=== PATIENT | female | born 1980 ===

== ENCOUNTER 2017-02-08 19:44 | Emergency (ER) | payer OTHER ==
[2017-02-08 19:56] VITALS: RESP 16
--- NOTE | 2017-02-08 21:26 | ED PDOC ---
HPI: Headache Time Seen by Provider: 02/08/17 20:07 Chief Complaint (Nursing): Headache Chief Complaint (Provider): Headache History Per: Patient, Economic Development Specialist ([id number] [address] Arrington) History/Exam Limitations: language barrier (interpretor used) Onset/Duration Of Symptoms: Days (x5 days) Current Symptoms Are (Timing): Still Present Additional Complaint(s): Cortney Oro is a 36 year old female with a past medical history of migraines who presents to the ED complaining of a headache x5 days. States the headache fluctuates from mild to severe and is usually worse at night. Also states the pain worsened today which prompted her to present to the ED. Denies nausea, vomiting, dizziness, fever, neck pain, head trauma, photophobia, and phonophobia, but confirms intermittent light headedness. States the pain is located in her right frontal region and radiates to her right occipital region. Patient has a past history of migraines, but states her symptoms feel slightly different. Confirms last taking Aleve at noon. LNMP 01/23/17. PMD: Cannot recall Past Medical History Reviewed: Historical Data, Nursing Documentation, Vital Signs Vital Signs: Last Vital Signs Temp 98.4 F 02/08/17 19:54 Pulse 87 02/08/17 19:54 Resp 16 02/08/17 19:54 BP 112/76 02/08/17 19:54 Pulse Ox 99 02/08/17 19:54 - Medical History PMH: Migraine - Surgical History Surgical History: Appendectomy - Family History Family History: States: Unknown Family Hx - Immunization History Hx Tetanus Toxoid Vaccination: No Hx Influenza Vaccination: No Hx Pneumococcal Vaccination: No - Home Medications Home Medications: Ambulatory Orders Medication Instructions Recorded Ibuprofen 1 tab PO PRN PRN 05/10/15 Naproxen [Naprosyn] 1 tab PO BID PRN #25 tab 05/10/15 Oseltamivir [Tamiflu] 1 cap PO BID #10 cap 05/10/15 Acetaminophen [Tylenol 325mg tab] 975 mg PO TID #25 tab 02/08/17 - Allergies Allergies/Adverse Reactions: Allergies Allergy/AdvReac Type Severity Reaction Status Date / Time Penicillins Allergy Verified 05/11/15 11:37 Review of Systems ROS Statement: Except As Marked, All Systems Reviewed And Found Negative Constitutional: Negative for: Fever Gastrointestinal: Negative for: Nausea, Vomiting Musculoskeletal: Negative for: Neck Pain Neurological: Positive for: Headache (fluctuating in intensity, right frontotemporally located and radiates to right occipital region), Other ( Intermittent light headedness). Negative for: Altered Mental Status, Dizziness Physical Exam - Reviewed Nursing Documentation Reviewed: Yes Vital Signs Reviewed: Yes - Physical Exam Appears: Positive for: No Acute Distress Head Exam: Positive for: ATRAUMATIC Skin: Positive for: Normal Color. Negative for: Rash Eye Exam: Positive for: Normal appearance Neck: Positive for: Normal, Painless ROM, Supple Neurologic/Psych: Positive for: Alert, time signal wirer II-XII, Oriented (x3), Gait (steady) . Negative for: Motor/Sensory Deficits, Aphasia, Facial Droop - ECG O2 Sat by Pulse Oximetry: 99 (RA) Pulse Ox Interpretation: Normal Medical Decision Making Medical Decision Making: Time: 20:43 Initial Impression: Headache Plan: --Reglan 10 mg PO --Tylenol 975 mg PO --Reevaluation On reevaluation, patient appears well, and reports significant improvement in symptoms. Patient advised to f/u with her PMD, and return to the ED for any worsening or change in symptoms. She expresses understanding and agreement. Patient ambulated from ED with steady gait. Scribe Attestation: Documented by Robert Oliveira, acting as a scribe for Sara Colmenares PA-C Provider Scribe Attestation: All medical record entries made by the Scribe were at my direction and personally dictated by me. I have reviewed the chart and agree that the record accurately reflects my personal performance of the history, physical exam, medical decision making, and the department course for this patient. I have also personally directed, reviewed, and agree with the discharge instructions and disposition. Disposition - Clinical Impression Clinical Impression: Headache - Patient ED Disposition Is Patient to be Admitted: No Counseled Patient/Family Regarding: Diagnosis, Need For Followup, Rx Given - Disposition Referrals: [facility] [Outside] Disposition: Routine/Home Disposition Time: 22:40 Condition: STABLE Additional Instructions: Follow up with PMD, and return for the ED for any worsening or change in symptoms. Prescriptions: Acetaminophen [Tylenol 325mg tab] 975 mg PO TID #25 tab Instructions: Migraine Headache (ED), Acute Headache (ED) Forms: [employer] (Colombian) Print Language: KENYAN
[2017-02-08 22:58] VITALS: BP 115/67; PULSE 65; TEMP 97.6
[2017-02-08 23:06] VITALS: O2SAT 99
== END 2017-02-08 23:00 | disposition home or self-care (01) ==
LOC: H.ER 19:44
DX: R51 Headache (principal); Z88.0 Allergy status to penicillin
CPT/HCPCS: 96372; 99283; J2765

== ENCOUNTER 2018-06-11 16:16 | Emergency (ER) | payer OTHER ==
[2018-06-11 16:36] VITALS: O2SAT 98
[2018-06-11] MEDS ORDERED: Sodium Chloride 0.9% 1,000 ML IV STA (16:51)
--- NOTE | 2018-06-11 17:06 | ED PDOC ---
HPI: Headache Time Seen by Provider: 06/11/18 16:50 Chief Complaint (Nursing): Headache Chief Complaint (Provider): Headache History Per: Patient History/Exam Limitations: no limitations Onset/Duration Of Symptoms: Hrs (12) Current Symptoms Are (Timing): Still Present Quality: "Pain" Additional Complaint(s): 38 year old female presents to the ED with right sided headache since 5 am. Patient reports additional body aches. She states left side of face and left breast feel swollen. Patient denies nausea, vomiting, or diarrhea PMD: none provided Past Medical History Reviewed: Historical Data, Nursing Documentation, Vital Signs Vital Signs: Last Vital Signs Temp 98.3 F 06/11/18 16:34 Pulse 86 06/11/18 16:34 Resp 20 06/11/18 16:34 BP 105/72 06/11/18 16:34 Pulse Ox 98 06/11/18 16:34 - Medical History PMH: Migraine - Surgical History Surgical History: Appendectomy - Family History Family History: States: Unknown Family Hx - Immunization History Hx Tetanus Toxoid Vaccination: No Hx Influenza Vaccination: No Hx Pneumococcal Vaccination: No - Home Medications Home Medications: Ambulatory Orders Medication Instructions Recorded DiphenhydrAMINE [Benadryl] 1 tab PO Q6 PRN 05/30/18 DiphenhydrAMINE [Benadryl] 25 mg PO BID #14 cap 05/30/18 Famotidine [Pepcid] 20 mg PO DAILY #14 tab 05/30/18 predniSONE [predniSONE Tab] 60 mg PO DAILY #21 tab 05/30/18 - Allergies Allergies/Adverse Reactions: Allergies Allergy/AdvReac Type Severity Reaction Status Date / Time Penicillins Allergy Verified 05/30/18 19:42 sulfamethoxazole Allergy Verified 05/30/18 21:06 [From Bactrim] trimethoprim [From Bactrim] Allergy Verified 05/30/18 21:06 Review of Systems ROS Statement: Except As Marked, All Systems Reviewed And Found Negative Gastrointestinal: Negative for: Nausea, Vomiting, Diarrhea Musculoskeletal: Positive for: Other (body aches, left breast swelling, left facial swelling) Neurological: Positive for: Headache Physical Exam - Reviewed Nursing Documentation Reviewed: Yes Vital Signs Reviewed: Yes - Physical Exam Appears: Positive for: Non-toxic, No Acute Distress Head Exam: Positive for: ATRAUMATIC, NORMOCEPHALIC Skin: Positive for: Normal Color, Warm, Dry Eye Exam: Positive for: Normal appearance, EOMI, PERRL Cardiovascular/Chest: Positive for: Regular Rate, Rhythm Respiratory: Positive for: Normal Breath Sounds Gastrointestinal/Abdominal: Positive for: Normal Exam, Soft. Negative for: Tenderness Extremity: Positive for: Normal ROM (upper and lower) Neurological/Psych: Positive for: Awake, Alert, Oriented - Laboratory Results Result Diagrams: 06/11/18 17:36 06/11/18 17:36 - ECG O2 Sat by Pulse Oximetry: 98 (RA) Pulse Ox Interpretation: Normal - Progress ED Course And Treament: REGLAN 10 MG IV X 1 DOSE DECADRON 10 MG IV X 1 DOSE NS 1 LITER WIDE OPEN RE-EVALUATED WITH RESOLUTION OF SYMPTOMS/HEADACHE Medical Decision Making Medical Decision Making: Time: 1649 --CMP --Magnesium --u dip --U preg --CBC --NS --Reglan 10 mg IVP Time: 1954 CT Head: FINDINGS: BRAIN: No acute intraparenchymal hemorrhage. No mass lesion. No CT evidence for acute territorial infarct. No midline shift or extra-axial collections. VENTRICLES: No hydrocephalus. ORBITS: The orbits are unremarkable. SINUSES AND MASTOIDS: The paranasal sinuses and mastoid air cells are clear. BONES: No fracture. SOFT TISSUES: Unremarkable. IMPRESSION: No acute intracranial abnormality. Scribe Attestation: Documented by Cindy Campos acting as a scribe for Perez Tillman PA-C. Provider Scribe Attestation: All medical record entries made by the Scribe were at my direction and personally dictated by me. I have reviewed the chart and agree that the record accurately reflects my personal performance of the history, physical exam, medical decision making, and the department course for this patient. I have also personally directed, reviewed, and agree with the discharge instructions and disposition. Disposition - Clinical Impression Clinical Impression: Acute headache - Patient ED Disposition Is Patient to be Admitted: No - Disposition Disposition: Routine/Home Disposition Time: 20:53 Condition: FAIR Instructions: Acute Headache (ED) Print Language: TUVALUAN
[2018-06-11 17:43] LABS: BASO # 0.1 K/uL (0.0-0.2); BASO % 0.5 % (0.0-2.0); EOS # 0.2 K/uL (0.0-0.7); EOS % 1.2 % (0.0-4.0); HEMOGLOBIN 12.5 g/dL (12.0-16.0); LYMPH # 4.3 K/uL (1.0-4.3); LYMPH % 31.9 % (20.0-40.0); MEAN CELL VOLUME 85.1 fl (81.0-99.0); MEAN CORPUSCULAR HEMOGLOBIN 28.5 pg (27.0-31.0); MEAN CORPUSCULAR HGB CONC 33.5 g/dL (33.0-37.0); MEAN PLATELET VOLUME 8.2 fl (7.2-11.7); MONO # 1.1 K/uL (0.0-0.8); MONO % 7.9 % (0.0-10.0); NEUT # 7.9 K/uL (1.8-7.0); NEUT % 58.5 % (50.0-75.0); NRBC % 0.2 % (0.0-0.0); RBC 4.39 Mil/uL (3.80-5.20); RED CELL DISTRIBUTION WIDTH 14.3 % (11.5-14.5); WHITE BLOOD COUNT 13.4 K/uL (4.8-10.8)
[2018-06-11 18:04] LABS: ALB/GLOB RATIO 1.3 (1.0-2.1); ALBUMIN 3.9 g/dL (3.5-5.0); ALT/SGPT 40 U/L (9-52); AST/SGOT 35 U/L (14-36); BLOOD UREA NITROGEN 19 mg/dl (7-17); CALCIUM 8.8 mg/dL (8.4-10.2); GFR NON-AFRICAN AMERICAN > 60
[2018-06-11] MEDS ORDERED: Dexamethasone 10 MG in Sodium Chloride 0.9% 50 ML IV ONE (18:28)
[2018-06-11 21:07] VITALS: BP 112/88; PULSE 90; RESP 16; TEMP 98
--- NOTE | 2018-06-12 10:04 | CT ---
Date of service: 06/11/2018 PROCEDURE: CT HEAD WITHOUT CONTRAST. HISTORY: HEADACHE COMPARISON: None available. TECHNIQUE: Axial computed tomography images were obtained through the head/brain without intravenous contrast. Radiation dose: Total exam DLP = 768.77 mGy-cm. This CT exam was performed using one or more of the following dose reduction techniques: Automated exposure control, adjustment of the mA and/or kV according to patient size, and/or use of iterative reconstruction technique. FINDINGS: HEMORRHAGE: No intracranial hemorrhage. BRAIN: No mass effect or edema. No atrophy or chronic microvascular ischemic changes. VENTRICLES: Unremarkable. No hydrocephalus. CALVARIUM: Unremarkable. PARANASAL SINUSES: Unremarkable as visualized. No significant inflammatory changes. MASTOID AIR CELLS: Unremarkable as visualized. No inflammatory changes. OTHER FINDINGS: None. IMPRESSION: No acute intracranial pathology.
== END 2018-06-11 21:07 | disposition home or self-care (01) ==
LOC: H.ER 16:16
DX: R51 Headache (principal); Z88.0 Allergy status to penicillin; Z88.1 Allergy status to other antibiotic agents; Z88.2 Allergy status to sulfonamides
CPT/HCPCS: 70450; 80053; 81025; 83735; 85025; 87804; 96361; 96374; 96375; 99283; J1100; J2765; J7030